=== PATIENT | female | born 1980 | race Caucasian/White ===

== ENCOUNTER 2016-10-14 10:46 | Emergency (ER) | payer BC, OTHER ==
[~2016-10-14] VITALS: Ht 162.6 cm; Wt 76.4 kg
[~2016-10-14 10:46] MED LIST: BCP; METH500T3 PO; VICOTAB4 PO; [UNRECOGNIZED DRUG - OTHER]
[2016-10-14 10:50] VITALS: BP_SYST 12; BP_SYST 126; BP_DIAS 76; PULSE 79; RESP 15; TEMP 98.2; O2SAT 98
--- NOTE | 2016-10-14 11:01 | PD ---
HPI Chief Complaint: Respiratory Symptoms Time Seen by Provider: 11:00 Travel History International Travel<30 days: No Contact w/Intl Traveler<30days: No Traveled to known affect area: No History of Present Illness HPI 36 year old female with PMH of idiopathic lung blebs and spontaneous pneumothorax of presents to the ED for evaluation of one month history of sinus congestion, nonproductive cough, stress incontinence, shortness of breath and 3 day history of left shoulder pain with worsening shortness of breath. Gradual onset. Shoulder pain worsened by raising the arm past 90. The patient denies fevers, chills, palpitations, diaphoresis, abdominal pain, nausea, vomiting, dysuria. Denies recent trauma or overuse of the left shoulder. LMP approximately one month ago. Patient endorses risk of . Endorses sick contacts states a lot of coworkers have been ill. Patient has never smoked , does not use oral contraception, denies recent history of long periods of immobilization. Denies chronic health problems, takes no daily medications. NKDA. PFSH Past Medical History Respiratory: Yes (SPONTANEOUS PNEUMO ) Social History Alcohol Use: No Tobacco Use: No Substance Use: No Allergies-Medications (Allergen,Severity, Reaction): Coded Allergies: No Known Allergies (Verified , 10/14/16) Reported Meds & Prescriptions Reported Meds & Active Scripts Active Levaquin (Levofloxacin) 750 Mg Tab 750 Mg PO DAILY 7 Days Review of Systems Except as stated in HPI: all other systems reviewed are Neg Physical Exam Narrative GENERAL: Well-nourished, well-developed nontoxic appearing white female in no acute distress. SKIN: Warm and dry. HEAD: Normocephalic. Atraumatic. EYES: No scleral icterus. No injection or drainage. PERRLA. EOMI. ENT: Pearly boyer tympanic membranes bilaterally. Nasal mucosa is moist. Oropharynx without erythema, edema or exudate. NECK: Supple, trachea midline. No JVD or lymphadenopathy. CARDIOVASCULAR: Regular rate and rhythm without murmurs, gallops, or rubs. 2+ DP and radial pulses bilaterally. RESPIRATORY: Breath sounds clear and equal bilaterally. No accessory muscle use. Speaks in full sentences. GASTROINTESTINAL: Abdomen soft, non-tender, nondistended. + Bowel sounds MUSCULOSKELETAL: No cyanosis, or edema. Hohmann sign negative bilaterally. FOCUSED LEFT UPPER EXTREMITY EXAM: No tenderness to palpation of the bony landmarks of the left shoulder. Patient maintains flexion, abduction, abduction of the left shoulder. Flexion beyond 90 elicits pain. 2+ radial pulse. Sensation intact to light touch distally. BACK: Nontender without obvious deformity. No CVA tenderness. Data Data Last Documented VS Vital Signs Date Time Temp Pulse Resp B/P Pulse Ox O2 Delivery O2 Flow Rate FiO2 10/14/16 12:55 79 16 119/76 99 Room Air 10/14/16 10:50 98.2 Orders Chest,Inspiration & Expiration (10/14/16 ) Complete Blood Count With Diff (10/14/16 11:11) Comprehensive Metabolic Panel (10/14/16 11:11) Act Partial Throm Time (Ptt) (10/14/16 11:11) Prothrombin Time / Inr (Pt) (10/14/16 11:11) Ckmb (Isoenzyme) Profile (10/14/16 11:11) Troponin I (10/14/16 11:11) Urinalysis - C+S If Indicated (10/14/16 11:11) Iv Access Insert/Monitor (10/14/16 11:11) Electrocardiogram (10/14/16 11:11) Ecg Monitoring (10/14/16 11:11) Oximetry (10/14/16 11:11) Sodium Chloride 0.9% Flush (Ns Flush) (10/14/16 11:15) Ed Urine Pregnancytest Poc (10/14/16 11:11) Urine Culture (10/14/16 11:40) Labs Laboratory Tests Test 10/14/16 11:40 White Blood Count 9.7 TH/MM3 Red Blood Count 4.19 MIL/MM3 Hemoglobin 12.8 GM/DL Hematocrit 37.5 % Mean Corpuscular Volume 89.5 FL Mean Corpuscular Hemoglobin 30.5 PG Mean Corpuscular Hemoglobin 34.1 % Concent Red Cell Distribution Width 13.0 % Platelet Count 304 TH/MM3 Mean Platelet Volume 7.6 FL Neutrophils (%) (Auto) 59.4 % Lymphocytes (%) (Auto) 30.4 % Monocytes (%) (Auto) 7.8 % Eosinophils (%) (Auto) 1.6 % Basophils (%) (Auto) 0.8 % Neutrophils # (Auto) 5.7 TH/MM3 Lymphocytes # (Auto) 2.9 TH/MM3 Monocytes # (Auto) 0.8 TH/MM3 Eosinophils # (Auto) 0.2 TH/MM3 Basophils # (Auto) 0.1 TH/MM3 CBC Comment DIFF FINAL Differential Comment Prothrombin Time 10.3 SEC Prothromb Time International 0.9 RATIO Ratio Activated Partial 27.6 SEC Thromboplast Time Urine Color YELLOW Urine Turbidity HAZY Urine pH 5.5 Urine Specific [place] 1.025 Urine Protein TRACE mg/dL Urine Glucose (UA) NEG mg/dL Urine Ketones NEG mg/dL Urine Occult Blood NEG Urine Nitrite NEG Urine Bilirubin NEG Urine Urobilinogen LESS THAN 2.0 MG/DL Urine Leukocyte Esterase LARGE Urine RBC 3 /hpf Urine WBC 4 /hpf Urine Squamous Epithelial 28 /hpf Cells Urine Bacteria MOD /hpf Urine Mucus FEW /lpf Microscopic Urinalysis Comment CULTURE INDICATED Sodium Level 139 MEQ/L Potassium Level 3.7 MEQ/L Chloride Level 105 MEQ/L Carbon Dioxide Level 25.4 MEQ/L Anion Gap 9 MEQ/L Blood Urea Nitrogen 17 MG/DL Creatinine 0.63 MG/DL Estimat Glomerular Filtration 107 ML/MIN Rate Random Glucose 82 MG/DL Calcium Level 9.2 MG/DL Total Bilirubin 0.3 MG/DL Aspartate Amino Transf 11 U/L (AST/SGOT) Alanine Aminotransferase 24 U/L (ALT/SGPT) Alkaline Phosphatase 102 U/L Total Creatine Kinase 50 U/L Troponin I LESS THAN 0.02 NG/ML Total Protein 7.4 GM/DL Albumin 3.9 GM/DL [facility] Medical Decision Making Medical Screen Exam Complete: Yes Emergency Medical Condition: Yes Interpretation(s) EKG rate 73, sinus rhythm, normal intervals. Normal axis. No ischemic changes. Reviewed by Dr. Munguia. Differential Diagnosis URI versus viral syndrome versus bronchitis versus rotator cuff injury versus less likely PE versus less likely ACS versus other Narrative Course 36 year old female with PMH of idiopathic lung blebs and spontaneous pneumothorax presents to the ED for evaluation of one month history of sinus congestion, nonproductive cough, stress incontinence, shortness of breath and 3 day history of left shoulder pain with worsening shortness of breath. Gradual onset. Shoulder pain worsened by raising the arm past 90. LMP approximately one month ago. Patient endorses risk of . Endorses sick contacts states a lot of coworkers have been ill. Patient has never smoked, does not use oral contraception, denies recent history of long periods of immobilization. Vitals reviewed. Physical exam reveals a nontoxic-appearing white female in no acute distress. No extra work of breathing. Chest is CTAB. No tenderness to palpation of the bony areas of the left shoulder. The patient retains active range of motion though flexion beyond 90 elicits pain. Risk of PE 1.3% by Well's criteria. CBC: No leukocytosis or anemia CMP: Unremarkable CXR: Postsurgical changes visualized bilaterally without acute process per radiology read. Cardiac enzymes: Negative UA: Large leukocyte esterase, moderate bacteria, 4WBCs. Bedside urine test negative. I discussed the patient, workup and plan of care with Dr. Munguia who agrees. Patient has asymptomatic bacteriuria. We'll treat the patient's bronchitis with Levaquin to cover possible UTI. Patient instructed to take all medication as prescribed, consider short course of anti-inflammatories for the shoulder pain, follow-up with orthopedist and primary care provider. Discussed reasons to return to the ED. She indicated understanding of instructions, is amenable to plan of care. Patient is stable and discharged home. Diagnosis Primary Impression: Bronchitis Referrals: Primary Care Physician Patient Instructions: Acute Bronchitis (ED), General Instructions Additional Instructions: Rest, hydrate. Take all antibiotics as prescribed, even if you're symptoms resolved. Consider a short course of anti-inflammatories for shoulder pain, follow-up with the orthopedist should symptoms continue. Follow-up with your primary care provider in one week. Return to the ED for any urgent or emergent medical condition. Med/Other Pt SpecificInfo: Prescription(s) given Scripts Levofloxacin (Levaquin)750 Mg Gui733 Mg PO DAILY 7 Days Ref 0 Prov:Aly Munguia MD 10/14/16 Disposition: 01 DISCHARGE HOME Condition: Stable Gricel Garner Oct 14, 2016 11:01
[2016-10-14 11:07] VITALS: BP 139/90; PULSE 88; RESP 16; O2SAT 98
[2016-10-14] MEDS ORDERED: SODIUM CHLORIDE 0.9% FLUSH 5 ML FLUSH IVF PRN (11:15)
[2016-10-14 11:55] LABS: AUTOMATED NEUTROPHIL # 5.7 TH/MM3 (1.8-7.7); BASOPHIL # 0.1 TH/MM3 (0-0.2); BASOPHIL % 0.8 % (0.0-2.0); EOSINOPHIL # 0.2 TH/MM3 (0-0.4); EOSINOPHIL % 1.6 % (0.0-4.0); HEMATOCRIT 37.5 % (35.0-46.0); HEMO FLAGS DIFF FINAL; LYMPH % 30.4 % (9.0-44.0); LYMPHOCYTE # 2.9 TH/MM3 (1.0-4.8); MEAN CELL VOLUME 89.5 FL (80.0-100.0); MEAN CORPUSCULAR HEMOGLOBIN 30.5 PG (27.0-34.0); MEAN CORPUSCULAR HGB CONC 34.1 % (32.0-36.0); MONO % 7.8 % (0.0-8.0); NEUT % 59.4 % (16.0-70.0); PLATELET COUNT 304 TH/MM3 (150-450); RED BLOOD COUNT 4.19 MIL/MM3 (4.00-5.30); WHITE BLOOD COUNT 9.7 TH/MM3 (4.0-11.0)
--- NOTE | 2016-10-14 12:01 | RADRPT ---
EXAM DATE/TIME: 10/14/2016 11:17 [facility] COMPARISON: No previous studies available for comparison. INDICATIONS : Short of breath. MEDICAL HISTORY : Pneumothorax. SURGICAL HISTORY : None. ENCOUNTER: Initial ACUITY: 1 day PAIN SCORE: 0/10 LOCATION: Bilateral chest FINDINGS: Inspiratory and expiration frontal views of the chest demonstrate a normal-sized cardiac silhouette. There are surgical staple lines at the apices of the lungs bilaterally. There is asymmetric left pleu ral-parenchymal opacity at the left apex. No effusion, consolidation, or pneumothorax is seen. Right ribs demonstrates changes related to prior thoracotomy. No acute osseous abnormality is seen. CONCLUSION: Postsurgical changes are visualized bilaterally with asymmetric opacity at the left lung apex presuma marleni related to prior surgery. Otherwise, no acute finding is identified. Alfredo Das MD on October 14, 2016 at 11:57 Board Certified Radiologist. This report was verified electronically.
[2016-10-14 12:06] LABS: APTT (PATIENT) 27.6 SEC (24.3-30.1); INTERNATIONAL NORMALIZED RATIO 0.9 RATIO; PROTHROMBIN TIME - PATIENT 10.3 SEC (9.8-11.6)
[2016-10-14 12:09] LABS: ANION GAP 9 MEQ/L (5-15); AST (GOT) 11 U/L (15-37); BICARBONATE 25.4 MEQ/L (21.0-32.0); BLOOD UREA NITROGEN 17 MG/DL (7-18); CHLORIDE 105 MEQ/L (98-107); GLOMERULAR FILTRATION RATE 107 ML/MIN (>89); POTASSIUM 3.7 MEQ/L (3.5-5.1); SODIUM (NA) 139 MEQ/L (136-145)
[2016-10-14 12:10] LABS: BACTERIA, URINE MOD /hpf; BLOOD, URINE NEG (NEG); GLUCOSE,URINE NEG (NEG); KETONE, URINE NEG (NEG); MUCUS URINE FEW /lpf (OCC); NITRITE,URINE NEG (NEG); PH, URINE 5.5 (5.0-8.5); SQUAMOUS EPITHELIAL CELL URINE 28 /hpf (0-5); URINE COLOR YELLOW (YELLW/STRAW)
[2016-10-14 12:14] LABS: ALKALINE PHOSPHATASE 102 U/L (45-117); ALT (GPT) 24 U/L (10-53); TOTAL BILIRUBIN ADULT 0.3 MG/DL (0.2-1.0)
[2016-10-14 12:16] LABS: COMMENT (UR) CULTURE INDICATED; CULTURE IF INDICATED CULTURE INDICATED
[2016-10-14 12:27] LABS: CREATINE KINASE 50 U/L (26-192)
[2016-10-14] MEDS ORDERED: LEVA750T PO (12:50)
[2016-10-14 12:55] VITALS: BP 119/76; PULSE 79; RESP 16; O2SAT 99
--- NOTE | 2016-10-15 17:17 | EKG ---
Date Performed: 10/14/2016 Time Performed: 12:16:33 PTAGE: 36 years EKG: Sinus rhythm Compared to prior tracing no significant change NORMAL ECG PREVIOUS TRACING : 08/30/2011 11.24 DOCTOR: Ayana Hagan Interpretating Date/Time 10/15/2016 17:16:13
== END 2016-10-14 13:05 | disposition home or self-care (01) ==
LOC: NEPA 10:46
DX: J40 Bronchitis, not specified as acute or chronic (principal); R82.71 Bacteriuria
CPT/HCPCS: 71020; 80053; 81001; 82550; 84484; 84703; 85025; 85610; 85730; 87086; 93005